=== PATIENT | female | born 1945 | race Caucasian/White ===

== ENCOUNTER 2019-12-27 17:59 | Observation (INO) ==
[2019-12-27] MEDS ORDERED: Gabapentin 300 MG CAPSULE PO ONE (18:26)
[2019-12-27] MEDS ORDERED: *HR* HYDROcodone/Acet 5/325 mg TABLET PO ONE (18:26)
[2019-12-27] MEDS ORDERED: Ketorolac 30 MG/ML VIAL IM ONE (18:26)
[2019-12-27 19:49] LABS: Basophils % 0.5 %; Eosinophils % 0.2 %; Hematocrit 29.7 % (35.3-44.9); Hemoglobin 8.8 g/dL (11.5-15.4); Immature Granulocytes % 0.5 % (0-4); Lymphocytes # 0.8 K/mcL (0.6-4.6); Lymphocytes % 20.5 %; Mean Corpuscular HGB Conc 29.6 g/dL (31.6-35.5); Mean Corpuscular Hemoglobin 23.7 pg (28.0-33.3); Mean Corpuscular Volume 79.8 fL (83.0-100.0); Mean Platelet Volume 9.1 fL (9.4-12.4); Monocytes # 0.2 K/mcL (0.0-1.3); Monocytes % 4.6 %; Platelet Count 186 K/mcL (140-400); Red Blood Count 3.72 M/mcL (3.82-4.97); Red Cell Distribution Width 19.5 % (11.5-14.5); Segmented Neutrophils % 73.7 %; White Blood Count 4.1 K/mcL (4.3-11.1)
[2019-12-27 20:05] LABS: Albumin 3.5 g/dL (3.5-5.7); Albumin/Globulin Ratio 1.2 (1.1-2.2); Bilirubin,Total 1.1 mg/dL (0.3-1.0); Calcium 8.6 mg/dL (8.6-10.3); Total Protein 6.5 g/dL (6.4-8.9)
[2019-12-27] MEDS ORDERED: Dextrose Gel 15 GM/37.5 ML TUBE PO PRN ×2 (21:19)
[2019-12-27] MEDS ORDERED: MOM Conc 10 ML UD.LIQ PO PRN (21:19)
[2019-12-27] MEDS ORDERED: *HR* Dextrose 50 % in Water (Syg) 50 ML SYRINGE IVP PRN (21:19)
[2019-12-27] MEDS ORDERED: Naloxone 0.4 MG/ML INJ IVP PRN (21:19)
[2019-12-27] MEDS ORDERED: D5% in Water 1,000 ML IVC PRN (21:19)
[2019-12-27] MEDS ORDERED: Ondansetron ODT 4 MG TAB.RAPDIS SL PRN (21:19)
[2019-12-27] MEDS ORDERED: Dexamethasone 4 MG/ML VIAL PO SCH (21:30)
[2019-12-27 23:54] LABS: Bilirubin,Urine Small (Negative); Blood,Urine Negative (Negative); Clarity,Urine Slightly Cloudy (Clear); Glucose,Urine (UA) Normal (Normal); Ketones,Urine Negative (Negative); Leukocyte Esterase,Urine Negative (Negative); Nitrite,Urine Negative (Negative); PH,Urine 5.5 pH Units (5.0-8.0); Protein,Urine 30 mg/dL (Neg-Trace); Specific Gravity,Urine >= 1.030 (1.010-1.025); Urobilinogen,Urine Normal (Normal)
[2019-12-27 23:55] LABS: Color,Urine Dark-Yellow (Yellow)
[2019-12-27 23:56] LABS: Amorphous Sediment,Urine Few per hpf (Few); Hyaline Casts,Urine Few per lpf (None-Few); Squamous Epithelial Cell,Urine Few per lpf (None-Few)
[2019-12-28] MEDS ORDERED: Insulin LISPRO 300 UNITS/3 ML VIAL SQ SCH
[2019-12-28] MEDS ORDERED: Dexamethasone 4 MG/ML VIAL PO SCH
[2019-12-28] MEDS: dexAMETHasone 4 MG TABLET PO SCH ×4 (00:12→23:43)
[2019-12-28] MEDS: Insulin LISPRO 300 UNITS/3 ML VIAL SQ SCH ×7 (00:13→23:43)
[2019-12-28 14:01] LABS: Estimated Average Glucose 146 mg/dl
[2019-12-29] MEDS: Insulin LISPRO 300 UNITS/3 ML VIAL SQ SCH ×2 (04:25→10:01)
[2019-12-29 07:57] VITALS: BP 163/88
[2019-12-29] MEDS: dexAMETHasone 4 MG TABLET PO SCH (09:34)
== END 2019-12-29 11:11 | disposition home health service (06) ==
LOC: EMEROOGRE 17:59 → INPGRE 17:59 → SUATTDRO 21:23 → INPGRE 21:38
PROVIDERS: ADMIT Internal Medicine; ATTEND Family Medicine

== ENCOUNTER 2020-02-22 18:29 | Observation (INO) ==
[2020-02-22 19:16] LABS: INR 1.2; Prothrombin Time 13.4 Seconds (9.4-12.1)
[2020-02-22 19:18] LABS: Basophils % 0.4 %; Eosinophils # 0.1 K/mcL (0.0-0.6); Hematocrit 26.9 % (35.3-44.9); Hemoglobin 8.1 g/dL (11.5-15.4); Immature Granulocytes % 0.2 % (0-4); Lymphocytes # 1.6 K/mcL (0.6-4.6); Lymphocytes % 31.6 %; Mean Corpuscular HGB Conc 30.1 g/dL (31.6-35.5); Mean Corpuscular Hemoglobin 23.5 pg (28.0-33.3); Mean Corpuscular Volume 78.2 fL (83.0-100.0); Mean Platelet Volume 9.6 fL (9.4-12.4); Monocytes # 0.5 K/mcL (0.0-1.3); Monocytes % 10.1 %; Neutrophils # 2.8 K/mcL (1.6-8.9); Platelet Count 221 K/mcL (140-400); Red Blood Count 3.44 M/mcL (3.82-4.97); Red Cell Distribution Width 17.2 % (11.5-14.5); Segmented Neutrophils % 56.7 %
[2020-02-22 19:27] LABS: Alanine Aminotransferase 20 Units/L (7-52); Albumin 2.9 g/dL (3.5-5.7); Albumin/Globulin Ratio 0.9 (1.1-2.2); Alkaline Phosphatase 254 Units/L (34-104); Aspartate Amino Transferase 31 Units/L (13-39); BUN/Creatinine Ratio 19 (6-26); Bilirubin,Total 0.7 mg/dL (0.3-1.0); Blood Urea Nitrogen 17 mg/dL (8-23); Calcium 8.2 mg/dL (8.6-10.3); Carbon Dioxide 29 mEq/L (23-29); Chloride 103 mEq/L (98-107); Globulin 3.1 g/dL (2.4-3.5); Glucose 147 mg/dL (70-105); Magnesium 1.5 mg/dL (1.6-2.6); Osmolality,Calculated 288 (280-300); Potassium 3.8 mEq/L (3.5-5.1); Sodium 137 mEq/L (136-145); eGFR For African Americans > 60 (> 60); eGFR For Non-African Americans > 60 (> 60)
[2020-02-22] MEDS ORDERED: Isovue-370 500 ML BOTTLE IVP ONE (19:50)
[2020-02-22] MEDS ORDERED: 0.9 % Sodium Chloride 1,000 ML IV ONE (19:51)
[2020-02-22 19:56] LABS: Bilirubin,Urine Negative (Negative); Blood,Urine Small (Negative); Clarity,Urine Clear (Clear); Color,Urine Yellow (Yellow); Glucose,Urine (UA) Normal (Normal); Ketones,Urine Negative (Negative); Leukocyte Esterase,Urine Small (Negative); Nitrite,Urine Negative (Negative); Protein,Urine Negative (Neg-Trace); Specific Gravity,Urine 1.015 (1.010-1.025); Urobilinogen,Urine Normal (Normal)
[2020-02-22 20:02] LABS: Bacteria,Urine Few per hpf (None-Few); RBC,Urine 0-3 per hpf (0-3); Squamous Epithelial Cell,Urine Moderate per lpf (None-Few); Yeast,Urine Few per hpf (None Seen)
[2020-02-22] MEDS ORDERED: Ondansetron 4 MG/2 ML VIAL IVP ONE (20:35)
[2020-02-22] MEDS ORDERED: Morphine Sulfate 2 MG/ML SYRINGE IVP ONE (20:35)
[2020-02-22] MEDS ORDERED: 0.9 % Sodium Chloride 1,000 ML IVC SCH (22:20)
[2020-02-22] MEDS ORDERED: Naloxone 0.4 MG/ML INJ IVP PRN (22:20)
[2020-02-23 01:02] LABS: BUN/Creatinine Ratio 19 (6-26); Blood Urea Nitrogen 15 mg/dL (8-23); Calcium 7.7 mg/dL (8.6-10.3); Carbon Dioxide 26 mEq/L (23-29); Chloride 106 mEq/L (98-107); Glucose 199 mg/dL (70-105); Osmolality,Calculated 292 (280-300); Potassium 3.6 mEq/L (3.5-5.1); Sodium 138 mEq/L (136-145); eGFR For African Americans > 60 (> 60); eGFR For Non-African Americans > 60 (> 60)
[2020-02-23 07:13] LABS: Basophils % 0.5 %; Eosinophils # 0.1 K/mcL (0.0-0.6); Eosinophils % 1.9 %; Hemoglobin 7.9 g/dL (11.5-15.4); Immature Granulocytes % 0.2 % (0-4); Lymphocytes # 1.3 K/mcL (0.6-4.6); Lymphocytes % 31.8 %; Mean Corpuscular HGB Conc 29.3 g/dL (31.6-35.5); Mean Corpuscular Volume 78.5 fL (83.0-100.0); Mean Platelet Volume 9.9 fL (9.4-12.4); Monocytes # 0.4 K/mcL (0.0-1.3); Monocytes % 8.9 %; Neutrophils # 2.4 K/mcL (1.6-8.9); Platelet Count 223 K/mcL (140-400); Red Blood Count 3.44 M/mcL (3.82-4.97); Red Cell Distribution Width 17.3 % (11.5-14.5); Segmented Neutrophils % 56.7 %; White Blood Count 4.2 K/mcL (4.3-11.1)
[2020-02-23] MEDS ORDERED: Lactobacillus 1 EACH CAP.SPRINK PO SCH (09:00)
[2020-02-23] MEDS: *HR* Metformin 850 MG TABLET PO SCH ×2 (09:01→20:10)
[2020-02-23] MEDS: risperiDONE 1 MG TABLET PO SCH ×2 (09:01→20:10)
[2020-02-23] MEDS: carvediloL 6.25 MG TABLET PO SCH ×2 (09:01→16:19)
[2020-02-23] MEDS ORDERED: *HR* Enoxaparin 30 MG/0.3 ML SYRINGE SQ SCH (10:00)
[2020-02-23] MEDS: cephALEXin 500 MG CAPSULE PO SCH ×2 (10:04→15:12)
[2020-02-23] MEDS ORDERED: cefTRIAXone 1,000 MG in Water for inj. (sterile) 10 ML IVP SCH (16:00)
[2020-02-23 19:14] VITALS: BP 132/78
[2020-02-23] MEDS ORDERED: Mirtazapine 15 MG TABLET PO SCH (21:00)
[2020-02-24] MEDS ORDERED: *HR* Enoxaparin 40 MG/0.4 ML SYRINGE SQ SCH (06:00)
== END 2020-02-23 22:32 | disposition left against medical advice (07) ==
LOC: INPGRE 18:29 → EMEROOGRE 18:29 → INPGRE 22:14
PROVIDERS: ADMIT Family Medicine; ATTEND Family Medicine